=== PATIENT | female | born 2000 | race Caucasian/White ===

== ENCOUNTER 2019-02-28 05:59 | Observation (INO) | payer OTHER ==
[2019-02-28] MEDS ORDERED: BISACODYL (EC) 5 MG TAB PO (07:00)
[2019-02-28] MEDS ORDERED: NACL 0.9% 3 ML SYG IV (07:00)
[2019-02-28] MEDS ORDERED: DOCUSATE SODIUM 100 MG CAP PO (07:00)
[2019-02-28] MEDS ORDERED: ACETAMINOPHEN 325 MG TAB PO (07:00)
[2019-02-28] MEDS ORDERED: ONDANSETRON 4 MG INJ IV (07:00)
[2019-02-28] MEDS ORDERED: HYOSCYAMINE 0.125 MG SUBL TAB PO (07:30)
[2019-02-28 08:23] LABS: ADD MAN DIFF? NO
[2019-02-28 08:31] LABS: WHITE BLOOD COUNT 8.3 10^3/ul (4.8-10.8)
[2019-02-28 08:31] LABS: BASOPHILS % 0.5 % (0.0-2.0); EOSINOPHILS # 0.2 10^3/ul (0.0-0.5); EOSINOPHILS % 1.8 % (0.0-7.0); HEMATOCRIT 36.1 % (37.0-47.0); LYMPHOCYTES # 2.6 10^3/ul (0.8-2.9); LYMPHOCYTES % 30.7 % (18.0-55.0); MEAN CORPUSCULAR HEMOGLOBIN 27.9 pg (29.0-33.0); MEAN CORPUSCULAR HGB CONC 33.2 g/dl (32.0-37.0); MEAN PLATELET VOLUME 11.3 fl (7.4-10.4); NEUTROPHIL # 4.5 10^3/ul (1.6-7.5); NEUTROPHILS % 54.8 % (30.0-74.0); PLATELET COUNT 296 10^3/UL (140-415); RED CELL DISTRIBUTION WIDTH 13.4 % (11.5-14.5)
[2019-02-28 08:50] LABS: INR 1.07; PT RATIO 1.1
[2019-02-28 08:51] LABS: PARTIAL THROMBOPLASTIN TIME 26.4 Sec (23.0-35.0)
[2019-02-28] MEDS: SOD CHLORIDE 0.9% 1,000 ML IV (08:53)
[2019-02-28 08:55] LABS: ANION GAP 4 (5-13); BLOOD UREA NITROGEN 8 mg/dl (7-20); CARBON DIOXIDE 25 mmol/L (21-31); CHLORIDE 110 mmol/L (97-110); CHOL/HDL RATIO 2.4 RATIO; CHOLESTEROL 114 mg/dl (85-185); CREATININE 0.57 mg/dl (0.44-1.00); Estimated GFR > 60 mL/min (>60); GLUCOSE 89 mg/dl (70-220); HDL CHOLESTEROL 46 mg/dl (33-83); LDL CHOLESTEROL,CALCULATED 56 mg/dl; POTASSIUM 3.6 mmol/L (3.5-5.1); SODIUM 139 mmol/L (135-144); TRIGLYCERIDES 60 mg/dl (0-149)
[2019-02-28 09:24] LABS: THYROID STIMULATING HORMONE 0.655 MIU/L (0.465-4.680)
[2019-02-28 09:59] LABS: ALANINE AMINOTRANSFERASE 389 IU/L (13-69); ALBUMIN 3.4 g/dl (3.3-4.9); ALKALINE PHOSPHATASE 140 IU/L (42-121); ASPARTATE AMINO TRANSFERASE 560 IU/L (15-46); BILIRUBIN,INDIRECT 0.8 mg/dl (0-1.1); BILIRUBIN,TOTAL 1.1 mg/dl (0.2-1.3); TOTAL PROTEIN 6.1 g/dl (6.1-8.1)
== END 2019-02-28 11:17 | disposition home or self-care (01) ==
LOC: PP2 05:59
DX: K80.50 Calculus of bile duct without cholangitis or cholecystitis without obstruction (principal)
CPT/HCPCS: 80048; 80061; 80076; 83036; 83735; 84443; 84703; 85025; 85610; 85730; 87081; 99217; G0378